=== PATIENT | male | born 1990 | race Two or more races ===

== ENCOUNTER 2024-12-27 02:35 | Emergency (ER) | payer OTHER ==
[~2024-12-27] VITALS: Ht 175.3 cm; Wt 100.0 kg
[2024-12-27] MEDS: NALOXONE HCL 1MG/ML 2ML SYRINGE IV ONE (03:04)
[2024-12-27] MEDS: NALOXONE HCL 1MG/ML 2ML SYRINGE ONE (03:04)
[2024-12-27] MEDS: MIDAZOLAM HCL 5 MG/ML-1ML VIAL IV ONE (03:08)
--- NOTE | 2024-12-27 03:16 | ED.PDOC ---
History of Present Illness HPI Comments 34 y/o obese M is BIBA for ALOC. Per EMS report, patient's spouse called after she awoke to gurgling sounds and found the patient in current altered state following last well known time at around 2200, last night, before going to bed. She states on patient being fine all day prior. On scene, patient was noted to have been cyanotic and unresponsive to any stimuli, initially, with snoring, agonal respirations. He was stated to have had an initial SpO2 of 75%RA and a blood glucose of 80. Patient then began moaning and flailing his arms upon sternal rub after being loaded onto the gurney. He was placed on a BVM and given 100ml of D10 en route. Upon arrival to ED, patient still remains altered. 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, Other (D10; BVM) Past Medical History PAST MEDICAL HISTORY: DM Surgical History: Denies all surgeries Family History Family History: Unknown Social History Smoker: Non-Smoker Alcohol: Denies ETOH Use Drugs: Denies Drug Use Lives In: Home All Other Systems: Reviewed and Negative (Comprehensive systems review obtained and negative except for what is stated in the HPI.) Physical Exam General Appearance: Mild Distress, Obese HEENT: Normal ENT Inspection, Pharynx Normal, TMs Normal Neck: Full Range of Motion, Non-Tender, Normal, Normal Inspection Respiratory: Chest Non-Tender, Lungs Clear, No Accessory Muscle Use, No Respiratory Distress, Normal Breath Sounds Cardiovascular: No Edema, No JVD, No Murmur, No Gallop, Normal Peripheral Pulses, Regular Rate/Rhythm Breast Exam: Deferred Gastrointestinal: No Organomegaly, Non Tender, No Pulsatile Mass, Normal Bowel Sounds, Soft Genitalia: Deferred Pelvic: Deferred Rectal: Deferred Extremities: No calf tenderness, Normal capillary refill, Normal inspection, Normal range of motion, Non-tender, No pedal edema Musculoskeletal : Apperance: Normal Neurologic: rock duster II-XII nml as Tested, No Motor Deficits, Speech Problem (slurred ), Other (sedated, but becomes agitated when aroused ) Cerebellar Function: Normal Reflexes: Normal Skin: Dry, Normal Color, Warm Lymphatic: No Adenopathy Was a procedure done? Was a procedure done?: No Differential Dx Considerations may include: hypoglycemia, encephalopathy, electrolyte imbalance, dehydration, viral syndrome, substance abuse, among others X-Ray, Labs, Meds, VS Vital Signs Date Time Temp Pulse Resp B/P (MAP) Pulse Ox O2 Delivery O2 Flow Rate FiO2 12/27/24 03:18 108 18 94 Nasal Cannula* 2 28 12/27/24 03:18 97.6 103 20 121/93 (102) 98 97.6 12/27/24 03:00 110 12/27/24 02:38 96.0 90 35 188/109 (135) 89 96.0 Lab Test 12/27/24 03:00 Range/Units White Blood Count 10.8 4.4-10.8 10^3/uL Red Blood Count 4.81 4.5-5.90 10^6/uL Hemoglobin 14.3 13.5-17.5 g/dL Hematocrit 42.7 41.0-53.0 % Mean Corpuscular Volume 88.8 80.0-100.0 fL Mean Corpuscular Hemoglobin 29.8 28.0-32.0 pg Mean Corpuscular Hemoglobin Concent 33.6 32.0-36.0 g/dL Red Cell Distribution Width 13.1 11.8-14.3 % Platelet Count 261 140-450 10^3/uL Mean Platelet Volume 8.0 6.9-10.8 fL Neutrophils (%) (Auto) 64.0 37.0-80.0 % Lymphocytes (%) (Auto) 22.5 10.0-50.0 % Monocytes (%) (Auto) 10.2 0.0-12.0 % Eosinophils (%) (Auto) 2.8 0.0-7.0 % Basophils (%) (Auto) 0.5 0.0-2.0 % Neutrophils # (Auto) 6.9 1.6-8.6 10 ^3/uL Lymphocytes # (Auto) 2.4 0.4-5.4 10 ^3/uL Monocytes # (Auto) 1.1 0-1.3 10 ^3/uL Eosinophils # (Auto) 0.3 0-0.8 10 ^3/uL Basophils # (Auto) 0.1 0-0.2 10 ^3/uL Nucleated Red Blood Cells 0.1 % Sodium Level 142 136-145 mmol/L Potassium Level 4.1 3.5-5.1 mmol/L Chloride Level 106 98-107 mmol/L Carbon Dioxide Level 27 20-31 mmol/L Anion Gap 9 5-15 Blood Urea Nitrogen 21 9-23 mg/dL Creatinine 1.20 0.700-1.30 mg/dL Glomerular Filtration Rate Calc 82 >90 mL/min BUN/Creatinine Ratio 17.5 10.0-20.0 Serum Glucose 63 L 74-106 mg/dL Lactic Acid Level 1.3 0.4-2.0 mmol/L Calcium Level 9.5 8.7-10.4 mg/dL Magnesium Level 1.8 1.6-2.6 mg/dL Total Bilirubin 0.6 0.2-1.0 mg/dL Aspartate Amino Transferase (AST) 28 13-40 U/L Alanine Aminotransferase (ALT) 39 7-40 U/L Alkaline Phosphatase 149 H 46-116 U/L Total Protein 7.6 5.7-8.2 g/dL Albumin 4.6 3.2-4.8 g/dL Salicylates Level < 3.0 -30 mg/dL Acetaminophen Level 2.0 L 10.0-20.0 UG/ML Plasma/Serum Blood Alcohol < 3.0 <10 mg/dL Current Medications Medications (Trade) Dose Ordered Sig/Frank Route Start Time Stop Time Status Last Admin Dextrose/Sodium Chloride 1,000 ml @ 150 mls/hr Q6H40M ONCE IV 12/27/24 03:00 12/27/24 09:39 12/27/24 03:38 Naloxone HCl (Narcan) 2 mg ONCE ONCE IV 12/27/24 03:00 12/27/24 03:01 DC 12/27/24 03:04 Midazolam HCl (Versed Injection) 10 mg ONCE ONCE IV 12/27/24 03:15 12/27/24 03:16 DC 12/27/24 03:[address] [address] Ph: [phone] DIAGNOSTIC IMAGING Diagnostic Imaging Report : [id number] Signed PATIENT: JULIO CÉSAR VILLAGOMEZ ACCT: [id number] UNIT: [id number] : 1990 LOC: ER ROOM / BED: / AGE / SEX: 34 / M ADM STATUS: REG ER SERVICE [id number] ORDERING PHYSICIAN: FLORINDA JASSO MD PROCEDURE(s): HWOCT - HEAD WITHOUT CONTRAST REASON: ALOC ORDER NUMBER(s): [id number], ACCESSION NUMBER(s): [id number] EXAM: CT HEAD WITHOUT CONTRAST INDICATION: ALOC TECHNIQUE: CT of the head without intravenous contrast. Radiation Dose : 1. Head: CT Dose: CTDI volume is 69.13 mGy. Dose-length product is 2032.44 mGy*cm The dose indicators for CT are the volume Computed Tomography (CT) Dose Index (CTDIvol) and the Dose Length Product (DLP), and are measured in units of mGy and mGy-cm, respectively. These indicators are not patient dose, but values generated from the CT scanner acquisition factors. The report includes radiation exposure data for exposures received during this examination. COMPARISON: None FINDINGS: There is no evidence of acute intracranial hemorrhage, extra-axial collection, mass effect, midline shift, herniation or hydrocephalus. The ventricles, sulci and cisterns are age appropriate. The sandoval-white differentiation is intact. The visualized paranasal sinuses and mastoid air cells are clear. The surrounding soft tissues and osseous structures are unremarkable. IMPRESSION: 1. No acute intracranial abnormality. Radiation optimization: All CT scans at this facility use at least one of these dose optimization techniques: automated exposure control mA and/or kV adjustment per patient size (includes targeted exams where dose is matched to clinical indication) or iterative reconstruction. ATED BY: ANSELMO VIRAMONTES MD DICTATED DATE/TIME: 12/27/24346 SIGNED BY: ANSELMO VIRAMONTES MD SIGNED DATE/TIME: 12/27/24346 CC: [place] [id number] Ph: [phone] DIAGNOSTIC IMAGING Diagnostic Imaging Report : [id number] Signed PATIENT: JULIO CÉSAR VILLAGOMEZ ACCT: [id number] UNIT: [id number] : 1990 LOC: ER ROOM / BED: / AGE / SEX: 34 / M ADM STATUS: REG ER SERVICE 0308 ORDERING PHYSICIAN: FLORINDA JASSO MD PROCEDURE(s): CS2 - CERVICAL WITHOUT CONTRAST REASON: neck pain, ALOC ORDER NUMBER(s): [id number], ACCESSION NUMBER(s): [id number] EXAM: CT CERVICAL WITHOUT CONTRAST HISTORY: neck pain, ALOC COMPARISON: None CTDIvol 69.13 mGy, DLP 2032.44 mGy*cm. TECHNIQUE: Multiple axial CT images of the spine were obtained using bone algorithm. Axial and coronal reformatting was done. Bone and soft tissue windows were reviewed. FINDINGS: No CT evidence of definite acute fracture, spinal dislocation, or significant appearing acute subluxation is seen. The visualized paraspinal soft tissues are grossly unremarkable. IMPRESSION: 1. No definite CT evidence of acute fracture or dislocation of the bony cervical spine. ATED BY: ANSELMO VIRAMONTES MD DICTATED DATE/TIME: 12/27/24351 SIGNED BY: ANSELMO VIRAMONTES MD SIGNED DATE/TIME: 12/27/24351 CC: Time of 1ST Reevaluation: 03:15 Reevaluation 1ST: Unchanged Patient Education/Counseling: Other (patient altered ) Family Education/Counseling: No Family Present Sepsis Sepsis Reasesment Focused Exam Orders: Laboratory Tests 12/27/24 03:00: Lactic Acid Level 1.3 Departure 1 Departure Time of Disposition: 05:05 Impression: Primary Impression: Acute metabolic encephalopathy Additional Impression: Hypoglycemia Disposition: 09 ADMITTED INPATIENT Condition: Guarded Discharged With: Self Comments Acute Confusion / Altered Mental Status Chief Complaint: Confusion History of Present Illness: 54-year-old male brought to the ED via EMS after his called due to acute onset confusion. Symptoms began approximately 2 hours prior to arrival. No reported trauma, fever, or other preceding symptoms. Patient was found to have hypoglycemia on initial workup. 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 Problem List: 1. Altered mental status 2. Hypoglycemia 3. Elevated alkaline phosphatase Differential Diagnosis: 1. Metabolic encephalopathy 2. Hypoglycemia 3. Toxic ingestion 4. Intracranial pathology 5. Infection ED Course: Patient presented with confusion. Initial workup revealed hypoglycemia. CT imaging negative for acute intracranial process. Toxicology screen negative. Patient remained confused but arousable on reassessment. Assessment and Plan: 1. Metabolic Encephalopathy: - Likely secondary to hypoglycemia - Will initiate treatment for hypoglycemia - Monitor mental status 2. Elevated Alkaline Phosphatase: - Requires outpatient follow-up for further evaluation 3. Disposition: - Admit for further evaluation and management of metabolic encephalopathy Billing Information: ICD-10: R41.0 - Disorientation, unspecified ICD-10: E16.2 - Hypoglycemia, unspecified ICD-10: R74.8 - Abnormal levels of other serum enzymes Critical Care Note Critical Care Time?: Yes (35 min-critical care time only) Critical care comment: Total critical care time: Approximately 36 minutes Due to a high probability of clinically significant, life threatening deterioration, the patient required my highest level of preparedness to intervene emergently and I personally spent this critical care time directly and personally managing the patient. This critical care time included obtaining a history; examining the patient; pulse oximetry; ordering and review of studies; arranging urgent treatment with development of a management plan; evaluation of patient's response to treatment; frequent reassessment; and, discussions with other providers. This critical care time was performed to assess and manage the high probability of imminent, life-threatening deterioration that could result in multi-organ failure. It was exclusive of separately billable procedures and treating other patients. Stability Stability form required: No Heart Score Heart Score: Heart Score Response (Comments) Value History N/A 0 EKG N/A 0 Age N/A 0 Risk Factors N/A 0 Troponin N/A 0 Total 0 I personally scribed for FLORINDA JASSO MD ([email or web address]) on 12/27/24 at 03:16. Electronically submitted by Yung Parker ([email or web address]). I personally scribed for FLORINDA JASSO MD ([email or web address]) on 12/27/24 at 04:03. Electronically submitted by Yung Parker ([email or web address]). FLORINDA JASSO MD Dec 27, 2024 03:16
[2024-12-27 03:18] VITALS: PULSE 108; RESP 18; O2SAT 94
[2024-12-27 03:26] LABS: Basophils # (auto) 0.1 10 ^3/uL (0-0.2); Basophils % (auto) 0.5 % (0.0-2.0); Eosinophils # (auto) 0.3 10 ^3/uL (0-0.8); Eosinophils % (auto) 2.8 % (0.0-7.0); Hematocrit 42.7 % (41.0-53.0); Hemoglobin 14.3 g/dL (13.5-17.5); Lymphocytes # (auto) 2.4 10 ^3/uL (0.4-5.4); Lymphocytes % (auto) 22.5 % (10.0-50.0); Mean Corpuscular Hemoglobin 29.8 pg (28.0-32.0); Mean Corpuscular Hgb Conc. 33.6 g/dL (32.0-36.0); Mean Corpuscular Volume 88.8 fL (80.0-100.0); Monocytes # (auto) 1.1 10 ^3/uL (0-1.3); Monocytes % (auto) 10.2 % (0.0-12.0); Neutrophils # (auto) 6.9 10 ^3/uL (1.6-8.6); Nucleated Red Blood Cells % 0.1 %; Platelet Count (auto) 261 10^3/uL (140-450); Red Blood Cells 4.81 10^6/uL (4.5-5.90); Red Cell Distribution Width 13.1 % (11.8-14.3); White Blood Cell 10.8 10^3/uL (4.4-10.8)
[2024-12-27] MEDS: D5W/SOD CHL 0.45% 1,000 ML IV ONE (03:38)
[2024-12-27 03:41] LABS: Alanine Aminotransferase 39 U/L (7-40); Albumin 4.6 g/dL (3.2-4.8); Anion Gap 9 (5-15); Aspartate Aminotransferase 28 U/L (13-40); BUN/Creatinine Ratio 17.5 (10.0-20.0); Blood Urea Nitrogen 21 mg/dL (9-23); Calcium 9.5 mg/dL (8.7-10.4); Carbon Dioxide 27 mmol/L (20-31); Chloride 106 mmol/L (98-107); Magnesium 1.8 mg/dL (1.6-2.6); Potassium 4.1 mmol/L (3.5-5.1); Sodium 142 mmol/L (136-145); Total Protein 7.6 g/dL (5.7-8.2)
[2024-12-27 03:42] LABS: Bilirubin, Total 0.6 mg/dL (0.2-1.0)
--- NOTE | 2024-12-27 03:49 | DVH ---
EXAM: CT HEAD WITHOUT CONTRAST INDICATION: ALOC TECHNIQUE: CT of the head without intravenous contrast. Radiation Dose : 1. Head: CT Dose: CTDI volume is 69.13 mGy. Dose-length product is 2032.44 mGy*cm The dose indicators for CT are the volume Computed Tomography (CT) Dose Index (CTDIvol) and the Dose Length Product (DLP), and are measured in units of mGy and mGy-cm, respectively. These indicators are not patient dose, but values generated from the CT scanner acquisition factors. The report includes radiation exposure data for exposures received during this examination. COMPARISON: None FINDINGS: There is no evidence of acute intracranial hemorrhage, extra-axial collection, mass effect, midline s hift, herniation or hydrocephalus. The ventricles, sulci and cisterns are age appropriate. The sandoval-white differentiation is intact. The visualized paranasal sinuses and mastoid air cells are clear. The surrounding soft tissues and osseous structures are unremarkable. IMPRESSION: 1. No acute intracranial abnormality. Radiation optimization: All CT scans at this facility use at least one of these dose optimization mandi hniques: automated exposure control mA and/or kV adjustment per patient size (includes targeted exam s where dose is matched to clinical indication) or iterative reconstruction.
--- NOTE | 2024-12-27 03:54 | DVH ---
EXAM: CT CERVICAL WITHOUT CONTRAST HISTORY: neck pain, ALOC COMPARISON: None CTDIvol 69.13 mGy, DLP 2032.44 mGy*cm. TECHNIQUE: Multiple axial CT images of the spine were obtained using bone algorithm. Axial and coron al reformatting was done. Bone and soft tissue windows were reviewed. FINDINGS: No CT evidence of definite acute fracture, spinal dislocation, or significant appearing acute subluxa tion is seen. The visualized paraspinal soft tissues are grossly unremarkable. IMPRESSION: 1. No definite CT evidence of acute fracture or dislocation of the bony cervical spine.
[2024-12-27 04:10] LABS: Salicylate < 3.0 mg/dL (-30)
[2024-12-27 04:11] LABS: Alkaline Phosphatase 149 U/L (46-116); Glucose 63 mg/dL (74-106)
[2024-12-27 04:59] LABS: Blood Alcohol < 3.0 mg/dL (<10)
[2024-12-27] MEDS: DEXTROSE (25%) 10 ML SYRG IV ONE (06:02)
[2024-12-27] MEDS: KETOROLAC TROMETH 30 MG/ML 1ML VIAL IV ONE (06:09)
[2024-12-27 07:38] VITALS: PULSE 105; RESP 15; O2SAT 98
[2024-12-27 10:10] VITALS: BP 133/90; PULSE 99; RESP 20; TEMP 97.6; O2SAT 97
[2024-12-27] MEDS: HYDROcodone-ACET 10/325MG TAB PO ONE (10:43)
== END 2024-12-27 10:45 | disposition short-term general hospital (02) ==
LOC: ER 02:35 → EDBD 02:35 → ER 10:45
DX: G93.41 Metabolic encephalopathy (principal); E11.649 Type 2 diabetes mellitus with hypoglycemia without coma; Z79.899 Other long term (current) drug therapy
CPT/HCPCS: 36415; 70450; 72125; 80053; 80320; 80329; 82947; 83605; 83735; 85025; 87040; 96365; 96366; 96375; 99291; J1885; J2250; J2310; 82962